=== PATIENT | female | born 1950 ===

== ENCOUNTER 2017-02-28 08:52 | Outpatient (CLI) | payer MEDICARE ==
[~2017-02-28 08:52] MED LIST: ADVIL200 MG PO; ASPIRIN EC81 MG PO; BENAZEPRIL-HCT1 EAC1 PO; LEVEMIR FL100 UNIT/1 SUB-Q; LIPITOR80 MG PO; NOVOLOG FL100 UNIT/1 SUB-Q; VESICARE10 MG PO; ZOLOFT100 MG PO
[2017-02-28 09:43] LABS: CREATININE 0.8 mg/dL (0.5-1.1); ESTIMATED GFR (MDRD EQUATION) > 60
== END 2017-02-28 11:55 | disposition disaster alternative care site (69) ==
LOC: GSIP 08:52 → GRAD 08:52 → GOPD 09:00 → GRAD 11:55
PROVIDERS: Physician Assistant
PROC: BP39Y0Z Magnetic Resonance Imaging (MRI) of Left Shoulder using Other Contrast, Unenhanced and Enhanced (ICD-10-PCS; principal; 2017-02-28)
DX: M25.512 Pain in left shoulder (principal); S43.492D Other sprain of left shoulder joint, subsequent encounter; X58.XXXD Exposure to other specified factors, subsequent encounter
CPT/HCPCS: J7030